=== PATIENT | female | born 1985 | race Caucasian/White ===

== ENCOUNTER 2017-02-16 15:31 | Emergency (ER) | payer MEDICAID, OTHER ==
[~2017-02-16] VITALS: Ht 167.6 cm; Wt 77.1 kg
[2017-02-16 16:14] VITALS: BP 168/116
== END 2017-02-16 19:50 | disposition left against medical advice (07) ==
LOC: ER 15:39
DX: R20.0 Anesthesia of skin (principal); F41.9 Anxiety disorder, unspecified; Z53.21 Procedure and treatment not carried out due to patient leaving prior to being seen by health care provider

== ENCOUNTER 2017-09-12 08:51 | Inpatient (IN) | payer MEDICAID ==
[~2017-09-12] VITALS: Ht 167.6 cm; Wt 75.5 kg
[2017-09-12 09:39] LABS: Urine Bacteria FEW /hpf (None Seen); Urine Blood 2+ /uL (Negative); Urine Mucus FEW (None Seen); Urine WBC 43 /hpf (0 - 5)
[2017-09-12 09:39] LABS: Basophils # (auto) 0.1 uL; Basophils % (auto) 0.3 % (0.0-2.0); Eosinophils # (auto) 0 uL; Hemoglobin 14.1 g/dL (12.2-16.2); Lymphocytes # (auto) 0.7 uL; Lymphocytes % (auto) 2.9 % (10.0-50.0); Mean Corpuscular Hemoglobin 32.7 pg (28.0-32.0); Mean Corpuscular Hgb Conc. 34.3 g/dL (32.0-36.0); Mean Corpuscular Volume 95.6 fL (80.0-100.0); Monocytes # (auto) 0.5 uL; Monocytes % (auto) 2.2 % (0.0-12.0); Neutrophils # (auto) 21.5 uL; Neutrophils % (auto) 94.6 % (37.0-80.0); Nucleated Red Blood Cells % 0.1 %; Platelet Count (auto) 176 10^3/uL (140-450); Red Blood Cells 4.29 10^6/uL (4.0-5.20); Red Cell Distribution Width 14.8 % (11.8-14.3); White Blood Cell 22.8 10^3/uL (4.4-10.8)
[2017-09-12 10:02] LABS: Albumin 3.4 g/dL (3.4-5.0); BUN/Creatinine Ratio 12.5; Calcium 9.1 mg/dL (8.5-10.1); Potassium 3.5 mmol/L (3.5-5.1)
[2017-09-12 10:05] LABS: Bilirubin, Total 0.8 mg/dL (0.2-1.0); Total Protein 8.1 g/dL (6.4-8.2)
[2017-09-12] MEDS ORDERED: SODIUM CHLORIDE 0.9% 1,000 ML IV ONE (11:17)
[2017-09-12] MEDS ORDERED: ONDANSETRON HCL 4 MG/2 ML VIAL IV ONE (11:30)
[2017-09-12] MEDS ORDERED: cefTRIAXone 1GM/10ml IVPUSH 10 ML IV ONE (11:30)
[2017-09-12] MEDS ORDERED: KETOROLAC TROMETH 30 MG/ML 1ML VIAL IV ONE (11:30)
[2017-09-12] MEDS ORDERED: LORazepam 2MG/ML-1ML VIAL IV ONE (11:45)
[2017-09-12 14:17] LABS: Amphetamine Screen, Urine POSITIVE (NEGATIVE); Barbiturate Scree,Urine NEGATIVE (NEGATIVE); Benzodiazephine Screen, Urine NEGATIVE (NEGATIVE); Cannabinoid Screen, Urine NEGATIVE (NEGATIVE); Cocaine Screen, Urine NEGATIVE (NEGATIVE); Opiate Scree,Urine NEGATIVE (NEGATIVE); Phencyclidine Screen, Urine NEGATIVE (NEGATIVE)
[2017-09-12] MEDS ORDERED: ACETAMINOPHEN 500 MG TAB PO ONE (14:30)
[2017-09-12] MEDS ORDERED: PIPERACILLIN-TAZOB 3.375GM 50 ML IV ONE (15:15)
[2017-09-12] MEDS ORDERED: MORPHINE SULFATE 4 MG/ML SYR/VIAL IV PRN ×2 (15:15)
[2017-09-12] MEDS ORDERED: ACETAMINOPHEN 500 MG TAB PO PRN (15:15)
[2017-09-12] MEDS ORDERED: NITROGLYCERIN 0.4 MG SL TAB SL PRN (15:15)
[2017-09-12] MEDS ORDERED: LORazepam 0.5 MG TAB PO PRN (15:15)
[2017-09-12] MEDS ORDERED: PROMETHAZINE HCL 25 MG/ML 1ML IV PRN (15:15)
[2017-09-12] MEDS ORDERED: TEMAZEPAM 15 MG CAP PO PRN (15:15)
[2017-09-12] MEDS: SODIUM CHLORIDE 0.9% 1,000 ML IV SCH ×2 (15:50→21:30)
[2017-09-12] MEDS: FAMOTIDINE (10MG/ML) 2ML VL IV SCH (15:50)
[2017-09-12] MEDS: PIPERACILLIN-TAZOB 3.375GM 50 ML IV SCH ×3 (15:52→22:14)
[2017-09-12] MEDS ORDERED: THIAMINE HCL 100 MG/ML 2ML VIAL IV ONE (16:15)
[2017-09-12 16:35] LABS: INR 0.99 (0.9-1.15); Partial Thromboplastin Time 35.3 sec (22.64-33.71); Prothrombin Time 10.8 sec (9.37-12.3)
[2017-09-12 17:05] VITALS: BP 141/86
[2017-09-12 17:11] VITALS: BP 141/86
[2017-09-12] MEDS ORDERED: PIPERACILLIN-TAZOB 3.375GM 50 ML IV SCH (18:00)
[2017-09-12] MEDS: chlordiazePOXIDE HCL 5 MG CAP PO SCH ×2 (18:14→23:54)
[2017-09-12] MEDS: HYDROcodone-ACET 5/325MG TAB PO PRN (18:26)
[2017-09-12] MEDS: chlordiazePOXIDE HCL 25 MG CAP PO PRN (20:45)
[2017-09-12 22:15] VITALS: BP 151/77
[2017-09-13] MEDS: FAMOTIDINE (10MG/ML) 2ML VL IV SCH ×2 (03:15→15:04)
[2017-09-13] MEDS: SODIUM CHLORIDE 0.9% 1,000 ML IV SCH (04:12)
[2017-09-13] MEDS: PIPERACILLIN-TAZOB 3.375GM 50 ML IV SCH ×4 (04:12→22:26)
[2017-09-13 05:08] VITALS: BP 121/88
[2017-09-13] MEDS: chlordiazePOXIDE HCL 5 MG CAP PO SCH ×3 (05:22→18:21)
[2017-09-13 05:53] LABS: Basophils # (auto) 0 uL; Basophils % (auto) 0.2 % (0.0-2.0); Eosinophils # (auto) 0.1 uL; Eosinophils % (auto) 0.5 % (0.0-7.0); Hematocrit 37.4 % (36.0-46.0); Hemoglobin 12.7 g/dL (12.2-16.2); Monocytes # (auto) 0.6 uL; Monocytes % (auto) 4.2 % (0.0-12.0); Neutrophils # (auto) 12.5 uL; Neutrophils % (auto) 88.1 % (37.0-80.0); Platelet Count (auto) 154 10^3/uL (140-450); Red Blood Cells 3.86 10^6/uL (4.0-5.20); Red Cell Distribution Width 14.9 % (11.8-14.3); White Blood Cell 14.2 10^3/uL (4.4-10.8)
[2017-09-13 06:20] LABS: Potassium 3.6 mmol/L (3.5-5.1)
[2017-09-13 06:27] LABS: Albumin 2.7 g/dL (3.4-5.0); BUN/Creatinine Ratio 12.5; Calcium 8.5 mg/dL (8.5-10.1)
[2017-09-13 06:32] LABS: Bilirubin, Total 1.3 mg/dL (0.2-1.0); Total Protein 6.7 g/dL (6.4-8.2)
[2017-09-13 06:38] LABS: Cholesterol 184 mg/dL (< 200); HDL Cholesterol 157 mg/dL (40-59); LDL Cholesterol 28 mg/dL (< 100); Triglycerides 46 mg/dL (< 150)
[2017-09-13 09:00] VITALS: BP 137/83
[2017-09-13] MEDS: THIAMINE HCL 100 MG/ML 2ML VIAL IV SCH (10:05)
[2017-09-13] MEDS: HYDROcodone-ACET 5/325MG TAB PO PRN ×3 (10:07→20:45)
[2017-09-13] MEDS: SOD CHL 0.9%/ KCL 20MEQ 1,000 ML IV SCH (12:53)
[2017-09-13 13:00] VITALS: BP 135/80
[2017-09-13] MEDS: chlordiazePOXIDE HCL 25 MG CAP PO PRN (15:05)
[2017-09-13 16:34] VITALS: BP 141/91
[2017-09-13 21:40] VITALS: BP 133/85
[2017-09-14] MEDS: chlordiazePOXIDE HCL 5 MG CAP PO SCH ×2 (01:07→06:10)
[2017-09-14] MEDS: HYDROcodone-ACET 5/325MG TAB PO PRN ×2 (01:24→09:34)
[2017-09-14] MEDS: FAMOTIDINE (10MG/ML) 2ML VL IV SCH (03:43)
[2017-09-14] MEDS: PIPERACILLIN-TAZOB 3.375GM 50 ML IV SCH ×3 (03:44→10:00)
[2017-09-14] MEDS: SOD CHL 0.9%/ KCL 20MEQ 1,000 ML IV SCH (03:50)
[2017-09-14 05:28] VITALS: BP 123/80
[2017-09-14 06:05] LABS: Basophils # (auto) 0 uL; Basophils % (auto) 0.4 % (0.0-2.0); Eosinophils # (auto) 0.1 uL; Eosinophils % (auto) 1.7 % (0.0-7.0); Hematocrit 35.4 % (36.0-46.0); Lymphocytes # (auto) 1.6 uL; Lymphocytes % (auto) 29.4 % (10.0-50.0); Mean Corpuscular Hemoglobin 33.4 pg (28.0-32.0); Mean Corpuscular Hgb Conc. 33.9 g/dL (32.0-36.0); Mean Corpuscular Volume 98.4 fL (80.0-100.0); Monocytes # (auto) 0.4 uL; Monocytes % (auto) 7.8 % (0.0-12.0); Neutrophils # (auto) 3.2 uL; Neutrophils % (auto) 60.7 % (37.0-80.0); Platelet Count (auto) 158 10^3/uL (140-450); Red Cell Distribution Width 14.6 % (11.8-14.3); White Blood Cell 5.3 10^3/uL (4.4-10.8)
[2017-09-14 07:05] LABS: Potassium 3.7 mmol/L (3.5-5.1)
[2017-09-14 07:12] LABS: Albumin 2.4 g/dL (3.4-5.0); BUN/Creatinine Ratio 5.3; Bilirubin, Total 0.9 mg/dL (0.2-1.0); Calcium 8.5 mg/dL (8.5-10.1); Total Protein 6.1 g/dL (6.4-8.2)
[2017-09-14 08:20] VITALS: BP 124/82
[2017-09-14] MEDS: THIAMINE HCL 100 MG/ML 2ML VIAL IV SCH (09:33)
[2017-09-14] MEDS ORDERED: PANT40TA2 PO (10:37)
[2017-09-14] MEDS ORDERED: CEPH-37 PO (10:37)
[2017-09-14 11:09] VITALS: BP 124/82
== END 2017-09-14 12:20 | disposition home or self-care (01) | DRG 720 ==
LOC: ER 08:51 → TELE 08:52 → TELE-WESTW 16:56 → WEST WING 09-13 13:07
PROVIDERS: ADMIT Internal Medicine; ATTEND Internal Medicine
DX: A41.9 Sepsis, unspecified organism (principal); E87.1 Hypo-osmolality and hyponatremia; K76.0 Fatty (change of) liver, not elsewhere classified; F41.9 Anxiety disorder, unspecified; I10 Essential (primary) hypertension; K80.20 Calculus of gallbladder without cholecystitis without obstruction; F10.239 Alcohol dependence with withdrawal, unspecified; F17.210 Nicotine dependence, cigarettes, uncomplicated; K56.7 Ileus, unspecified; N12 Tubulo-interstitial nephritis, not specified as acute or chronic; F15.10 Other stimulant abuse, uncomplicated; G47.00 Insomnia, unspecified; Z82.49 Family history of ischemic heart disease and other diseases of the circulatory system; Z80.0 Family history of malignant neoplasm of digestive organs
CPT/HCPCS: 36415; 71046; 71250; 74176; 76705; 78226; 80053; 80061; 80307; 80320; 81001; 82150; 83036; 83690; 83735; 84443; 84702; 85025; 85610; 85652; 85730; 87040; 87086; 93005; 96361; 96374; 96375; J1885; J2405; J2543; J3490

== ENCOUNTER 2019-03-14 20:45 | Emergency (ER) | payer MEDICAID ==
[~2019-03-14] VITALS: Ht 167.6 cm; Wt 81.6 kg
[~2019-03-14 20:45] MED LIST: CEPH-37 PO; PANT40TA2 PO
[2019-03-14] MEDS ORDERED: cloNIDine HCL 0.1 MG TAB ONE (21:09)
[2019-03-14 21:30] VITALS: BP 169/114
[2019-03-14] MEDS ORDERED: cloNIDine HCL 0.1 MG TAB PO ONE (21:30)
== END 2019-03-14 23:08 | disposition left against medical advice (07) ==
LOC: ER 20:50
DX: I10 Essential (primary) hypertension (principal); Z53.21 Procedure and treatment not carried out due to patient leaving prior to being seen by health care provider

== ENCOUNTER 2021-04-10 16:11 | Emergency (ER) | payer MEDICAID ==
[~2021-04-10] VITALS: Ht 167.6 cm; Wt 86.2 kg
[2021-04-10 16:14] VITALS: BP 162/112
[2021-04-10 17:33] LABS: Alanine Aminotransferase 49 U/L (16-61); Anion Gap 10 (5-15); Aspartate Aminotransferase 101 U/L (15-37); BUN/Creatinine Ratio 5.6; Blood Urea Nitrogen 3 mg/dL (7-18); Calcium 8.1 mg/dL (8.5-10.1); Carbon Dioxide 21 mmol/L (21-32); Chloride 104 mmol/L (98-107); GFR African American 221 mL/min; GFR Non-African American 183 mL/min; Glucose 87 mg/dL (74-106); Sodium 135 mmol/L (136-145)
[2021-04-10 17:35] LABS: Alkaline Phosphatase 99 U/L (45-117); Bilirubin, Total 0.4 mg/dL (0.2-1.0); Total Protein 7.4 g/dL (6.4-8.2)
== END 2021-04-10 20:05 | disposition left against medical advice (07) ==
LOC: ER 16:11
DX: U07.1 COVID-19 (principal); R07.89 Other chest pain; Z53.21 Procedure and treatment not carried out due to patient leaving prior to being seen by health care provider
CPT/HCPCS: 36415; 71045; 80053; 84484; 93005

== ENCOUNTER 2022-03-02 21:19 | Emergency (ER) | payer MEDICAID ==
[~2022-03-02] VITALS: Ht 167.6 cm; Wt 102.7 kg
[2022-03-02 22:01] VITALS: BP 121/83
[2022-03-02 22:35] LABS: Urine Bacteria NONE SEEN /hpf (None Seen); Urine Blood Negative /uL (Negative); Urine Hyaline Cast MOD /lpf (0 - 2); Urine Mucus FEW (None Seen); Urine Specific Gravity 1.015 (1.001-1.035); Urine WBC 6 /hpf (0 - 3)
[2022-03-02 23:06] LABS: Basophils # (auto) 0 10 ^3/uL (0-0.2); Basophils % (auto) 0.6 % (0.0-2.0); Eosinophils # (auto) 0 10 ^3/uL (0-0.8); Eosinophils % (auto) 0.6 % (0.0-7.0); Hematocrit 44.6 % (41.0-53.0); Hemoglobin 14.7 g/dL (13.5-17.5); Lymphocytes # (auto) 2.6 10 ^3/uL (0.4-5.4); Lymphocytes % (auto) 40.8 % (10.0-50.0); Mean Corpuscular Hemoglobin 30.2 pg (28.0-32.0); Mean Corpuscular Hgb Conc. 32.9 g/dL (32.0-36.0); Mean Corpuscular Volume 91.8 fL (80.0-100.0); Monocytes # (auto) 0.5 10 ^3/uL (0-1.3); Monocytes % (auto) 8.1 % (0.0-12.0); Neutrophils # (auto) 3.2 10 ^3/uL (1.6-8.6); Neutrophils % (auto) 49.9 % (37.0-80.0); Nucleated Red Blood Cells % 0.1 %; Red Blood Cells 4.86 10^6/uL (4.5-5.90); Red Cell Distribution Width 18.6 % (11.8-14.3); White Blood Cell 6.3 10^3/uL (4.4-10.8)
[2022-03-02 23:28] LABS: Albumin 3.4 g/dL (3.4-5.0); Potassium 3.9 mmol/L (3.5-5.1)
[2022-03-02 23:32] LABS: BUN/Creatinine Ratio 8.6; Bilirubin, Total 0.5 mg/dL (0.2-1.0); Total Protein 7.6 g/dL (6.4-8.2)
== END 2022-03-03 03:21 | disposition left against medical advice (07) ==
LOC: ER 21:19
DX: R10.32 Left lower quadrant pain (principal); R10.31 Right lower quadrant pain; Z53.21 Procedure and treatment not carried out due to patient leaving prior to being seen by health care provider
CPT/HCPCS: 36415; 80053; 81001; 82150; 83690; 84702; 85025

== ENCOUNTER 2022-04-28 12:06 | Emergency (ER) | payer MEDICAID ==
[~2022-04-28] VITALS: Ht 167.6 cm; Wt 91.0 kg
[2022-04-28 12:17] VITALS: BP 156/102
[2022-04-28 12:59] LABS: Basophils # (auto) 0 10 ^3/uL (0-0.2); Basophils % (auto) 0.7 % (0.0-2.0); Eosinophils # (auto) 0.1 10 ^3/uL (0-0.8); Eosinophils % (auto) 1.1 % (0.0-7.0); Hematocrit 38.8 % (41.0-53.0); Hemoglobin 13.1 g/dL (13.5-17.5); Lymphocytes # (auto) 1.5 10 ^3/uL (0.4-5.4); Lymphocytes % (auto) 29.1 % (10.0-50.0); Mean Corpuscular Hemoglobin 32.7 pg (28.0-32.0); Mean Corpuscular Hgb Conc. 33.8 g/dL (32.0-36.0); Mean Corpuscular Volume 96.5 fL (80.0-100.0); Monocytes # (auto) 0.4 10 ^3/uL (0-1.3); Monocytes % (auto) 8.2 % (0.0-12.0); Neutrophils # (auto) 3.1 10 ^3/uL (1.6-8.6); Neutrophils % (auto) 60.9 % (37.0-80.0); Nucleated Red Blood Cells % 0.2 %; Red Blood Cells 4.02 10^6/uL (4.5-5.90); Red Cell Distribution Width 16.5 % (11.8-14.3); White Blood Cell 5.1 10^3/uL (4.4-10.8)
[2022-04-28 13:18] LABS: Calcium 8.4 mg/dL (8.5-10.1); Potassium 3.8 mmol/L (3.5-5.1)
[2022-04-28 13:21] LABS: BUN/Creatinine Ratio 10.9; Bilirubin, Total 0.6 mg/dL (0.2-1.0); Total Protein 6.6 g/dL (6.4-8.2)
[2022-04-28] MEDS ORDERED: FURO20TA3 PO (16:36)
[2022-04-28] MEDS ORDERED: POTA10TA51 PO (16:37)
== END 2022-04-28 20:58 | disposition left against medical advice (07) ==
LOC: ER 12:06
DX: R60.0 Localized edema (principal); I10 Essential (primary) hypertension; F17.210 Nicotine dependence, cigarettes, uncomplicated; Z79.899 Other long term (current) drug therapy; Z88.5 Allergy status to narcotic agent
CPT/HCPCS: 36415; 80053; 83880; 85025; 93005; 93970